=== PATIENT | female | born 1995 | race Caucasian/White ===

== ENCOUNTER 2017-08-23 18:08 | Emergency (ER) | payer MEDICAID ==
[~2017-08-23] VITALS: Ht 160 cm; Wt 79.0 kg
[2017-08-23 18:11] VITALS: Ht 160 cm; Wt 79.0 kg
[2017-08-23] MEDS ORDERED: PRED20TA PO (20:20)
[2017-08-23] MEDS ORDERED: VALA10004 PO (20:20)
[2017-08-23] MEDS ORDERED: MINE3.5O30 RIGHT EYE (20:20)
[2017-08-23] MEDS ORDERED: PRED50TA PO (20:22)
--- NOTE | 2017-08-23 22:06 | ERD ---
ER Documentation Chief Complaint Chief Complaint right facial numbnessince monday HPI This is a 21-year-old female presenting to the emergency department complaining of numbness to the right side of her face for 3 days. Patient states that she does have difficulty closing her right eye and when she smiles she has asymmetry. Patient denies any other neuro deficits. She denies any fevers or taking medications for this ROS All systems reviewed and are negative except as per history of present illness. Medications Home Meds Active Scripts Prednisone* (Prednisone*) 50 Mg Tablet, 50 MG PO DAILY for 5 Days, TAB Prov:VITA NASH PA-C 08/23/17 Valacyclovir HCl (Valtrex) 1,000 Mg Tablet, 1000 MG PO TID for 7 Days, TAB Prov:VITA NASH PA-C 08/23/17 Mineral Oil/Petrolatum,White (ARTIFICIAL TEARS EYE OINT) 3.5 Gm Oint...g., 1 APPLIC RIGHT EYE NEEDED Y for DRY EYES, #1 EA Prov:VITA NASH PA-C 08/23/17 Physical Exam Vitals Vital Signs Date Time Temp Pulse Resp B/P Pulse Ox O2 Delivery O2 Flow Rate FiO2 08/23/17 18:11 98.2 78 142/78 99 Physical Exam Const: Well-developed well-nourished no acute distress Head: Atraumatic Eyes: Normal Conjunctiva ENT: Normal External Ears, Nose Inability to close right eye, asymmetry to her smile, paralysis cyst of forehead muscles to the right Neck: Full range of motion..~ No meningismus. Resp: Clear to auscultation bilaterally Cardio: Regular rate and rhythm, no murmurs Abd: Soft, non tender, non distended. Normal bowel sounds Skin: No petechiae or rashes Back: No midline or flank tenderness Ext: No cyanosis, or edema Neur: Awake and alert Psych: Normal Mood and Affect Procedures/MDM This is a 21-year-old female presenting to the emergency department with signs and symptoms most consistent with Koroma's palsy. She did not have any evidence of CVA. Patient was given prescription for prednisone, valacyclovir and artificial teardrops. I have discussed the condition with the patient and discussed with her to continue to follow-up with her primary care physician. Discussed return to the ER for any worsening signs or symptoms. Patient understands and agrees with plan Departure Diagnosis: Primary Impression: Koroma's palsy Condition: Stable Patient Instructions: Koroma's Palsy, Koroma's Palsy Additional Instructions: FOLLOW UP WITH YOUR PRIMARY CARE PHYSICIAN TOMORROW.Return to this facility if you are not improving as expected. Return to this facility if you are not improving as expected. VITA NASH PA-C Aug 23, 2017 22:06
== END 2017-08-24 08:21 | disposition home or self-care (01) ==
LOC: E/R 18:08
DX: G51.0 Bell's palsy (principal)
CPT/HCPCS: 99284